=== PATIENT | male | born 1955 | race Caucasian/White ===

== ENCOUNTER 2020-04-02 11:34 | Observation (INO) ==
[2020-04-02] MEDS ORDERED: Naloxone 0.4 MG/ML INJ IVP PRN (16:00)
[2020-04-02] MEDS ORDERED: Pregabalin 50 MG CAPSULE PO SCH (16:30)
[2020-04-02 17:10] LABS: Estimated Average Glucose 111 mg/dl
[2020-04-02 17:42] LABS: Folate 20.5 ng/mL (3.0-16.0)
[2020-04-02 17:46] LABS: Potassium 3.4 mEq/L (3.5-5.1)
[2020-04-02 17:47] LABS: Vitamin B12 > 1500 pg/mL (250-1100)
[2020-04-02 17:48] LABS: Calcium 8.4 mg/dL (8.6-10.3); Magnesium 1.6 mg/dL (1.6-2.6); Thyroid Stimulating Hormone 1.018 mcIU/mL (0.340-5.600)
[2020-04-02] MEDS ORDERED: Acetaminophen 650 MG RECTAL SUPP RC PRN (18:11)
[2020-04-02] MEDS ORDERED: hydrALAZINE 25 MG TABLET PO SCH (21:00)
[2020-04-02] MEDS ORDERED: carvediloL 25 MG TABLET PO SCH (21:00)
[2020-04-02] MEDS ORDERED: D5% in Water 1,000 ML IVC PRN (21:53)
[2020-04-02] MEDS ORDERED: *HR* Dextrose 50 % in Water (Syg) 50 ML SYRINGE IVP PRN (21:53)
[2020-04-02] MEDS ORDERED: Dextrose Gel 15 GM/37.5 ML TUBE PO PRN ×2 (21:53)
[2020-04-02] MEDS ORDERED: Insulin LISPRO 300 UNITS/3 ML VIAL SQ SCH (22:00)
[2020-04-02] MEDS ORDERED: *HR* Heparin 5,000 UNIT/ML VIAL SQ SCH (22:00)
[2020-04-02] MEDS ORDERED: *HR* Heparin 5,000 UNIT/ML VIAL IVP PRN ×2 (22:31)
[2020-04-02] MEDS ORDERED: *HR* Heparin 5,000 UNIT/ML VIAL IVP ONE (22:31)
[2020-04-02] MEDS ORDERED: Heparin 25,000 UNIT/250 ML D5W 25,000 UNIT/250 ML IV.SOLN IVC SCH (22:45)
[2020-04-02 22:55] LABS: Mean Corpuscular Volume 96.1 fL (83.0-100.0)
[2020-04-02 22:57] LABS: Hematocrit 22.1 % (37.5-50.1); Hemoglobin 7.4 g/dL (12.9-16.9); Immature Platelets 2.5 % (1.1-6.1); Mean Corpuscular HGB Conc 33.5 g/dL (31.6-35.5); Mean Corpuscular Hemoglobin 32.2 pg (28.0-33.3); Mean Platelet Volume 9.5 fL (9.4-12.4); Red Blood Count 2.3 M/mcL (4.19-5.50); Red Cell Distribution Width 19.6 % (11.5-14.5)
[2020-04-02 23:02] LABS: INR 1.1; Prothrombin Time 12.8 Seconds (9.4-12.1)
[2020-04-02 23:05] LABS: Heparin anti-factor XA UFH < 0.04 IU/mL (0.30-0.70)
[2020-04-03 01:28] LABS: Hemoglobin 7.2 g/dL (12.9-16.9); Red Cell Distribution Width 19.6 % (11.5-14.5)
[2020-04-03 01:30] LABS: Hematocrit 21.1 % (37.5-50.1); Immature Granulocytes % 0.3 % (0-4); Immature Platelets 3.2 % (1.1-6.1); Lymphocytes # 0.3 K/mcL (0.6-4.6); Lymphocytes % 2.8 %; Mean Corpuscular HGB Conc 34.1 g/dL (31.6-35.5); Mean Corpuscular Hemoglobin 32.7 pg (28.0-33.3); Mean Corpuscular Volume 95.9 fL (83.0-100.0); Mean Platelet Volume 9.6 fL (9.4-12.4); Monocytes # 0.3 K/mcL (0.0-1.3); Neutrophils # 8.5 K/mcL (1.6-8.9); Platelet Count 44 K/mcL (140-400); Segmented Neutrophils % 93.9 %
[2020-04-03 01:45] LABS: Calcium 8.2 mg/dL (8.6-10.3); Magnesium 1.6 mg/dL (1.6-2.6); Potassium 3.6 mEq/L (3.5-5.1)
[2020-04-03 04:39] VITALS: BP 121/70
[2020-04-03] MEDS ORDERED: Insulin LISPRO 300 UNITS/3 ML VIAL SQ SCH (07:30)
[2020-04-03] MEDS ORDERED: predniSONE 5 MG TABLET PO SCH (09:00)
[2020-04-03] MEDS ORDERED: NIFEdipine XL (24 HR) 60 MG TAB.ER.24 PO SCH (09:00)
[2020-04-03] MEDS ORDERED: (Febuxostat [Uloric] 40 MG) PO SCH (09:00)
[2020-04-03] MEDS ORDERED: MAGNESIUM PO SCH (09:00)
[2020-04-03] MEDS ORDERED: Bumetanide 1 MG TABLET PO SCH (09:00)
[2020-04-03] MEDS ORDERED: [UNRECOGNIZED DRUG - OTHER] PO SCH (09:00)
[2020-04-03] MEDS ORDERED: Renal Vitamin 1 CAP CAPSULE PO SCH (09:00)
== END 2020-04-03 04:42 | disposition short-term general hospital (02) ==
LOC: 2ANU
PROVIDERS: ADMIT Internal Medicine; ATTEND Internal Medicine

== ENCOUNTER 2020-07-02 16:31 | Inpatient (IN) ==
[2020-07-02] MEDS ORDERED: Ondansetron 4 MG/2 ML VIAL IVP PRN (20:20)
[2020-07-02] MEDS ORDERED: Naloxone 0.4 MG/ML INJ IVP PRN (20:20)
[2020-07-02] MEDS ORDERED: *HR* LORazepam 2 MG/ML VIAL IVP PRN ×3 (21:33)
[2020-07-02] MEDS ORDERED: Benzonatate 100 MG CAPSULE PO PRN (21:34)
[2020-07-02] MEDS ORDERED: D5% in Water 1,000 ML IVC PRN (22:05)
[2020-07-02] MEDS ORDERED: Dextrose Gel 15 GM/37.5 ML TUBE PO PRN ×2 (22:05)
[2020-07-02] MEDS ORDERED: *HR* Dextrose 50 % in Water (Vial) 50 ML VIAL IVP PRN (22:05)
[2020-07-02] MEDS ORDERED: Perflutren Lipid Microsphere 1.3 ML in 0.9 % Sodium Chloride 8.7 ML IVP PRN (22:24)
[2020-07-02] MEDS: Thiamine (B-1) 100 MG, Folic Acid 1 MG, MVI, adult with vitamin K 10 ML in 0.9 % Sodi... IVPB SCH (22:46)
[2020-07-02] MEDS: 0.9 % Sodium Chloride 1,000 ML IVC SCH (22:47)
[2020-07-03] MEDS ORDERED: *HR* Heparin 5,000 UNIT/ML VIAL SQ SCH (06:00)
[2020-07-03] MEDS: 0.9 % Sodium Chloride 1,000 ML IVC SCH (09:07)
[2020-07-03] MEDS: Insulin LISPRO 300 UNITS/3 ML VIAL SQ SCH ×3 (09:07→17:30)
[2020-07-03] MEDS ORDERED: Colchicine 0.6 MG TABLET PO SCH (15:45)
[2020-07-03] MEDS ORDERED: NON-FORMULARY MEDICATION 1 EACH EACH PO SCH (17:15)
[2020-07-03] MEDS: carvediloL 25 MG TABLET PO SCH (17:29)
[2020-07-03] MEDS: [UNRECOGNIZED DRUG - OTHER] PO SCH (17:30)
[2020-07-03] MEDS: Thiamine (B-1) 100 MG, Folic Acid 1 MG, MVI, adult with vitamin K 10 ML in 0.9 % Sodi... IVPB SCH (17:33)
[2020-07-03] MEDS ORDERED: Insulin LISPRO 300 UNITS/3 ML VIAL SQ SCH (21:00)
[2020-07-03] MEDS: hydrALAZINE 25 MG TABLET PO SCH (21:00)
[2020-07-04] MEDS: *HR* OxyCODONE Immed Rel 5 MG TABLET PO PRN ×2 (01:54→09:36)
[2020-07-04 02:33] LABS: Mean Platelet Volume 9.4 fL (9.4-12.4); Red Cell Distribution Width 15.4 % (11.5-14.5)
[2020-07-04 02:35] LABS: Basophils % 0.2 %; Eosinophils # 0.1 K/mcL (0.0-0.6); Eosinophils % 1.1 %; Hemoglobin 7.2 g/dL (12.9-16.9); Immature Granulocytes % 0.7 % (0-4); Immature Platelets 2.3 % (1.1-6.1); Lymphocytes # 0.9 K/mcL (0.6-4.6); Lymphocytes % 20.4 %; Mean Corpuscular HGB Conc 32.7 g/dL (31.6-35.5); Mean Corpuscular Hemoglobin 32.4 pg (28.0-33.3); Mean Corpuscular Volume 99.1 fL (83.0-100.0); Monocytes # 0.5 K/mcL (0.0-1.3); Monocytes % 11.1 %; Neutrophils # 2.9 K/mcL (1.6-8.9); Platelet Count 66 K/mcL (140-400); Red Blood Count 2.22 M/mcL (4.19-5.50); Segmented Neutrophils % 66.5 %; White Blood Count 4.4 K/mcL (4.3-11.1)
[2020-07-04 02:51] LABS: Calcium 7.4 mg/dL (8.6-10.3); Potassium 3.5 mEq/L (3.5-5.1)
[2020-07-04] MEDS: Insulin LISPRO 300 UNITS/3 ML VIAL SQ SCH (08:55)
[2020-07-04] MEDS ORDERED: predniSONE 5 MG TABLET PO SCH (09:00)
[2020-07-04] MEDS ORDERED: Cyanocobalamin (B-12) 1,000 MCG TABLET PO SCH (09:00)
[2020-07-04] MEDS ORDERED: lisinopriL 20 MG TABLET PO SCH (09:00)
[2020-07-04] MEDS ORDERED: Febuxostat [Uloric] 40 MG PO SCH (09:00)
[2020-07-04] MEDS: carvediloL 25 MG TABLET PO SCH (09:35)
[2020-07-04] MEDS: hydrALAZINE 25 MG TABLET PO SCH (09:36)
[2020-07-04] MEDS: [UNRECOGNIZED DRUG - OTHER] PO SCH (09:37)
[2020-07-04 13:11] VITALS: BP 133/63
[2020-07-05] MEDS ORDERED: Multivit/Ca/Min/Fe/FA 1 TAB TABLET PO SCH (09:00)
== END 2020-07-04 13:20 | disposition home or self-care (01) | DRG 897 ==
LOC: 3ANU → SUATTDRO 18:53
PROVIDERS: ADMIT Internal Medicine; ATTEND Internal Medicine

== ENCOUNTER 2021-10-16 18:38 | Observation (INO) ==
[2021-10-16] MEDS ORDERED: Ondansetron ODT 4 MG TAB.RAPDIS SL PRN (22:43)
[2021-10-16] MEDS ORDERED: Naloxone 0.4 MG/ML INJ IVP PRN (22:46)
[2021-10-16] MEDS ORDERED: Melatonin 3 MG TABLET PO PRN (22:46)
[2021-10-16] MEDS ORDERED: Potassium Chloride Elixir 20 MEQ/15 ML UDC PO ONE (23:01)
[2021-10-16] MEDS ORDERED: Dextrose Gel 15 GM/37.5 ML TUBE PO PRN ×2 (23:02)
[2021-10-16] MEDS ORDERED: *HR* Dextrose 50 % in Water (Syg) 50 ML SYRINGE IVP PRN (23:02)
[2021-10-16] MEDS ORDERED: D5% in Water 1,000 ML IVC PRN (23:02)
[2021-10-17] MEDS ORDERED: 0.9 % Sodium Chloride 1,000 ML IVC SCH ×2 (00:15→08:00)
[2021-10-17 05:10] LABS: Hematocrit 29.6 % (37.5-50.1); Hemoglobin 9.6 g/dL (12.9-16.9); Mean Corpuscular HGB Conc 32.4 g/dL (31.6-35.5); Mean Corpuscular Volume 92.5 fL (83.0-100.0); Mean Platelet Volume 9.5 fL (9.4-12.4); Platelet Count 269 K/mcL (140-400); Red Cell Distribution Width 14.6 % (11.5-14.5); White Blood Count 7.9 K/mcL (4.3-11.1)
[2021-10-17 05:14] LABS: Albumin 3.2 g/dL (3.5-5.7); Albumin/Globulin Ratio 1.1 (1.1-2.2); Bilirubin,Total 0.8 mg/dL (0.3-1.0); Calcium 8.5 mg/dL (8.6-10.3); INR 1.1; Magnesium 2.2 mg/dL (1.6-2.6); Phosphorous 3.4 mg/dL (2.7-4.5); Potassium 3.8 mEq/L (3.5-5.1); Prothrombin Time 11.8 Seconds (9.4-12.1); Total Protein 6.2 g/dL (6.4-8.9)
[2021-10-17] MEDS: Sennosides/Docusate Sodium TABLET PO SCH ×2 (07:33→20:19)
[2021-10-17] MEDS: *HR* HYDROcodone/Acet 5/325 mg TABLET PO PRN ×2 (07:38→18:06)
[2021-10-17] MEDS: Insulin LISPRO 300 UNITS/3 ML VIAL SUBQ SCH ×3 (07:44→18:07)
[2021-10-17] MEDS: [UNRECOGNIZED DRUG - OTHER] PO SCH (14:16)
[2021-10-17] MEDS: *HR* OxyCODONE Immed Rel 5 MG TABLET PO SCH ×2 (14:19→20:19)
[2021-10-17] MEDS ORDERED: Gabapentin 300 MG CAPSULE PO SCH (18:00)
[2021-10-17] MEDS: carvediloL 25 MG TABLET PO SCH (20:19)
[2021-10-17] MEDS ORDERED: Insulin LISPRO 300 UNITS/3 ML VIAL SUBQ SCH (21:00)
[2021-10-17] MEDS ORDERED: traZODone 50 MG TABLET PO SCH (21:00)
[2021-10-18] MEDS: *HR* HYDROcodone/Acet 5/325 mg TABLET PO PRN (02:46)
[2021-10-18] MEDS: [UNRECOGNIZED DRUG - OTHER] PO SCH (08:38)
[2021-10-18] MEDS: carvediloL 25 MG TABLET PO SCH (08:42)
[2021-10-18] MEDS: Sennosides/Docusate Sodium TABLET PO SCH (08:42)
[2021-10-18] MEDS: *HR* OxyCODONE Immed Rel 5 MG TABLET PO SCH (08:42)
[2021-10-18] MEDS: Insulin LISPRO 300 UNITS/3 ML VIAL SUBQ SCH ×2 (08:47→12:07)
[2021-10-18] MEDS ORDERED: Cholecalciferol (D-3) 1,000 UNIT (25MCG) TABLET PO SCH (09:00)
[2021-10-18] MEDS ORDERED: Folic Acid 1 MG TABLET PO SCH (09:00)
[2021-10-18] MEDS ORDERED: tiZANidine 4 MG TABLET PO SCH (09:00)
[2021-10-18] MEDS ORDERED: Gabapentin 100 MG CAPSULE PO SCH (09:00)
[2021-10-18] MEDS ORDERED: Thiamine (B-1) 100 MG TABLET PO SCH (09:00)
[2021-10-18] MEDS ORDERED: Cyanocobalamin (B-12) 1,000 MCG TABLET PO SCH (09:00)
[2021-10-18 10:24] LABS: Basophils % 0.4 %; Eosinophils # 0.1 K/mcL (0.0-0.6); Eosinophils % 1.7 %; Hematocrit 28.4 % (37.5-50.1); Immature Granulocytes % 0.8 % (0-4); Lymphocytes # 1.3 K/mcL (0.6-4.6); Lymphocytes % 17.5 %; Mean Corpuscular HGB Conc 31.7 g/dL (31.6-35.5); Mean Corpuscular Hemoglobin 29.9 pg (28.0-33.3); Mean Corpuscular Volume 94.4 fL (83.0-100.0); Mean Platelet Volume 9.5 fL (9.4-12.4); Monocytes # 0.7 K/mcL (0.0-1.3); Monocytes % 9.8 %; Platelet Count 242 K/mcL (140-400); Red Blood Count 3.01 M/mcL (4.19-5.50); Red Cell Distribution Width 14.6 % (11.5-14.5); Segmented Neutrophils % 69.8 %; White Blood Count 7.2 K/mcL (4.3-11.1)
[2021-10-18 10:46] LABS: Calcium 8.4 mg/dL (8.6-10.3); Potassium 3.4 mEq/L (3.5-5.1)
[2021-10-18 11:11] VITALS: BP 147/83; PULSE 72; TEMP 98.5; O2SAT 95
== END 2021-10-18 13:30 | disposition home health service (06) ==
LOC: 3ANU → SUATTDRO 22:00
PROVIDERS: ADMIT Pharmacist; ATTEND Internal Medicine

== ENCOUNTER 2022-05-11 19:16 | Inpatient (IN) ==
[2022-05-12 00:04] LABS: Mean Corpuscular Hemoglobin 32.3 pg (28.0-33.3); Monocytes % 1.2 %
[2022-05-12 00:06] LABS: Eosinophils % 1.2 %; Hemoglobin 7.3 g/dL (12.9-16.9); Immature Platelets 3.5 % (1.1-6.1); Lymphocytes # 0.8 K/mcL (0.6-4.6); Lymphocytes % 95.2 %; Mean Corpuscular HGB Conc 34.8 g/dL (31.6-35.5); Mean Corpuscular Volume 92.9 fL (83.0-100.0); Mean Platelet Volume 12.7 fL (9.4-12.4); Red Blood Count 2.26 M/mcL (4.19-5.50); Red Cell Distribution Width 18.3 % (11.5-14.5); Segmented Neutrophils % 2.4 %
[2022-05-12 00:11] LABS: Platelet Count 64 K/mcL (140-400); White Blood Count 0.8 K/mcL (4.3-11.1)
[2022-05-12 00:12] LABS: Albumin 3.7 g/dL (3.5-5.7); Albumin/Globulin Ratio 1.2 (1.1-2.2); Bilirubin,Total 0.6 mg/dL (0.3-1.0); Calcium 9.5 mg/dL (8.6-10.3); Globulin 3.1 g/dL (2.4-3.5); Potassium 3.7 mEq/L (3.5-5.1); Total Protein 6.8 g/dL (6.4-8.9)
[2022-05-12 00:52] LABS: Anisocytosis 1+ (Not Present); Hypochromasia Present (Not Present); Platelet Estimate Decreased (Normal)
[2022-05-12 00:59] LABS: Influenza A PCR Negative (Negative); Influenza B PCR Negative (Negative); Resp. Syncytial Virus PCR Negative (Negative)
[2022-05-12] MEDS ORDERED: Cefepime HCl 2,000 MG in 0.9 % Sodium Chloride 10 ML IVP ONE (01:13)
[2022-05-12 01:29] LABS: SARS-CoV-2 by PCR (In House) Negative (Negative)
[2022-05-12 03:01] LABS: Bilirubin,Urine Negative (Negative); Blood,Urine Negative (Negative); Clarity,Urine Clear (Clear); Color,Urine Light-Yellow (Yellow); Glucose,Urine (UA) Normal (Normal); Hyaline Casts,Urine Few per lpf (None Seen); Ketones,Urine Trace mg/dL (Negative); Leukocyte Esterase,Urine Negative (Negative); Mucus,Urine Few per lpf (None-Few); Nitrite,Urine Negative (Negative); PH,Urine 5.5 pH Units (5.0-8.0); Protein,Urine 30 mg/dL (Neg-Trace); RBC,Urine 0-3 per hpf (0-3); Squamous Epithelial Cell,Urine Few per hpf (None-Few); Urobilinogen,Urine Normal (Normal); WBC,Urine 0-3 per hpf (0-3)
[2022-05-12 03:21] LABS: Adenovirus Not Detected (Not Detect); Bordetella Pertussis Not Detected (Not Detect); Chlamydophila pneumoniae Not Detected (Not Detect); Coronavirus 229E Not Detected (Not Detect); Coronavirus HKU1 Not Detected (Not Detect); Coronavirus NL63 Not Detected (Not Detect); Coronavirus OC43 Not Detected (Not Detect); Human Metapneumovirus Not Detected (Not Detect); Human Rhinovirus/Enterovirus Not Detected (Not Detect); Influenza A Subtype 2009 H1 Not Detected (Not Detect); Influenza B Not Detected (Not Detect); Mycoplasma pneumoniae Not Detected (Not Detect); Parainfluenza Virus 1 Not Detected (Not Detect); Parainfluenza Virus 2 Not Detected (Not Detect); Parainfluenza Virus 3 Not Detected (Not Detect); Parainfluenza Virus 4 Not Detected (Not Detect); Respiratory Syncytial Virus Not Detected (Not Detect); SARS-CoV-2 Not Detected (Not Detect)
[2022-05-12] MEDS ORDERED: Naloxone 0.4 MG/ML INJ IVP PRN (04:10)
[2022-05-12] MEDS ORDERED: 0.9 % Sodium Chloride 1,000 ML IVC SCH (04:15)
[2022-05-12] MEDS ORDERED: D5% in Water 1,000 ML IVC PRN (04:29)
[2022-05-12] MEDS ORDERED: *HR* Dextrose 50 % in Water (Syg) 50 ML SYRINGE IVP PRN (04:29)
[2022-05-12] MEDS ORDERED: Dextrose Gel 15 GM/37.5 ML TUBE PO PRN ×2 (04:29)
[2022-05-12] MEDS: Fluconazole 400 MG/200 ML 400 MG/200 ML BAG IVPB SCH ×2 (07:38→09:58)
[2022-05-12] MEDS: Insulin LISPRO 300 UNITS/3 ML VIAL SUBQ SCH ×3 (07:50→17:54)
[2022-05-12] MEDS ORDERED: Cefepime HCl 2,000 MG in 0.9 % Sodium Chloride 20 ML IVPB SCH (10:00)
[2022-05-12] MEDS: Ondansetron 4 MG/2 ML VIAL IVP PRN ×2 (12:06→18:04)
[2022-05-12] MEDS: allopurinoL 300 MG TABLET PO SCH (21:22)
[2022-05-12] MEDS: Acyclovir 200 MG CAPSULE PO SCH (21:22)
[2022-05-12] MEDS: Cefepime HCl 2,000 MG in 0.9 % Sodium Chloride 20 ML IVPB SCH (22:51)
[2022-05-13] MEDS: Ondansetron 4 MG/2 ML VIAL IVP PRN ×2 (00:18→20:52)
[2022-05-13] MEDS ORDERED: *HR* Metoprolol 5 MG/5 ML VIAL IVP ONE (03:48)
[2022-05-13 05:40] LABS: Mean Corpuscular Hemoglobin 32.5 pg (28.0-33.3); Red Cell Distribution Width 18.5 % (11.5-14.5)
[2022-05-13 05:42] LABS: Hemoglobin 6.2 g/dL (12.9-16.9); Immature Platelets 2.6 % (1.1-6.1); Lymphocytes # 0.2 K/mcL (0.6-4.6); Lymphocytes % 94.4 %; Mean Corpuscular HGB Conc 34.4 g/dL (31.6-35.5); Mean Corpuscular Volume 94.2 fL (83.0-100.0); Mean Platelet Volume 12.3 fL (9.4-12.4); Red Blood Count 1.91 M/mcL (4.19-5.50); Segmented Neutrophils % 5.6 %
[2022-05-13 05:55] LABS: Calcium 8.6 mg/dL (8.6-10.3); Potassium 3.8 mEq/L (3.5-5.1)
[2022-05-13 06:09] LABS: Platelet Count 75 K/mcL (140-400); White Blood Count 0.2 K/mcL (4.3-11.1)
[2022-05-13 06:26] LABS: Anisocytosis 2+ (Not Present); Hypochromasia Present (Not Present); Platelet Estimate Decreased (Normal)
[2022-05-13] MEDS: Insulin LISPRO 300 UNITS/3 ML VIAL SUBQ SCH ×3 (08:00→16:38)
[2022-05-13] MEDS: allopurinoL 300 MG TABLET PO SCH (08:00)
[2022-05-13] MEDS: Fluconazole 100 MG TABLET PO SCH (08:00)
[2022-05-13] MEDS: Acyclovir 200 MG CAPSULE PO SCH ×2 (08:00→20:52)
[2022-05-13] MEDS ORDERED: POSACONAZOLE 100 MG PO SCH (09:00)
[2022-05-13] MEDS ORDERED: allopurinoL 300 MG TABLET PO SCH (09:00)
[2022-05-13] MEDS ORDERED: ACYCLOVIR 400 MG PO SCH (09:00)
[2022-05-13] MEDS ORDERED: 0.9 % Sodium Chloride 250 ML ONE (09:57)
[2022-05-13] MEDS: TIZANIDINE HCL 2 MG PO SCH (10:23)
[2022-05-13] MEDS: *HR* LORazepam 1 MG TABLET PO SCH (10:24)
[2022-05-13] MEDS: Cefepime HCl 2,000 MG in 0.9 % Sodium Chloride 20 ML IVPB SCH ×2 (10:27→23:36)
[2022-05-13] MEDS: *HR* Heparin 5,000 UNIT/ML VIAL SQ SCH (16:38)
[2022-05-14 02:17] LABS: Adenovirus F 40/41 PCR Not detected (Not detect); Astrovirus PCR Not detected (Not detect); C.difficile Toxin A/B Gene PCR Not detected (Not detect); Campylobacter by PCR Not detected (Not detect); Cryptosporidium by PCR Not detected (Not detect); Cyclospora cayetanensis PCR Not detected (Not detect); E. coli O157 by PCR Not detected (Not detect); Entamoeba histolytica PCR Not detected (Not detect); Enteroaggregative E.coli(EAEC) Not detected (Not detect); Enteropathogenic E.coli(EPEC) Not detected (Not detect); Enterotoxigenic E.coli (ETEC) Not detected (Not detect); Giardia lamblia PCR Not detected (Not detect); Norovirus GI/GII PCR DETECTED (Not detect); Plesiomonas shigelloides PCR Not detected (Not detect); Rotavirus A PCR Not detected (Not detect); Salmonella PCR Not detected (Not detect); Sapovirus PCR Not detected (Not detect); Shig/EnteroinvasiveE coli EIEC Not detected (Not detect); Shigalike tox-prod E coli STEC Not detected (Not detect); Vibrio PCR Not detected (Not detect); Vibrio cholerae PCR Not detected (Not detect); Yersinia enterocolitica PCR Not detected (Not detect)
[2022-05-14 04:14] LABS: Hematocrit 22.1 % (37.5-50.1)
[2022-05-14 04:16] LABS: Hemoglobin 7.5 g/dL (12.9-16.9); Immature Platelets 2.7 % (1.1-6.1); Lymphocytes # 0.2 K/mcL (0.6-4.6); Mean Corpuscular HGB Conc 33.9 g/dL (31.6-35.5); Mean Corpuscular Hemoglobin 31.4 pg (28.0-33.3); Mean Corpuscular Volume 92.5 fL (83.0-100.0); Mean Platelet Volume 10.4 fL (9.4-12.4); Red Blood Count 2.39 M/mcL (4.19-5.50); Red Cell Distribution Width 18.5 % (11.5-14.5)
[2022-05-14 04:34] LABS: Calcium 8.6 mg/dL (8.6-10.3); Potassium 3.6 mEq/L (3.5-5.1)
[2022-05-14 04:35] LABS: Platelet Count 82 K/mcL (140-400)
[2022-05-14 04:39] LABS: White Blood Count 0.2 K/mcL (4.3-11.1)
[2022-05-14] MEDS: *HR* Heparin 5,000 UNIT/ML VIAL SQ SCH ×2 (05:09→17:15)
[2022-05-14 05:10] LABS: Anisocytosis 1+ (Not Present); Hypochromasia Present (Not Present); Platelet Estimate Decreased (Normal)
[2022-05-14] MEDS: *HR* LORazepam 1 MG TABLET PO SCH (09:25)
[2022-05-14] MEDS: Fluconazole 100 MG TABLET PO SCH (09:25)
[2022-05-14] MEDS: TIZANIDINE HCL 2 MG PO SCH ×2 (09:26→23:10)
[2022-05-14] MEDS: Acyclovir 200 MG CAPSULE PO SCH ×2 (09:26→20:08)
[2022-05-14] MEDS: Insulin LISPRO 300 UNITS/3 ML VIAL SUBQ SCH ×3 (09:26→17:20)
[2022-05-14] MEDS: allopurinoL 300 MG TABLET PO SCH (09:26)
[2022-05-14] MEDS: Cefepime HCl 2,000 MG in 0.9 % Sodium Chloride 20 ML IVPB SCH (11:38)
[2022-05-14 12:57] LABS: A.calcoaceticus-baumannii cplx Not Detected (Not Detect); Bacteroides fragilis by PCR Not Detected (Not Detect); Candida albicans by PCR Not Detected (Not Detect); Candida auris by PCR Not Detected (Not Detect); Candida glabrata by PCR Not Detected (Not Detect); Candida krusei by PCR Not Detected (Not Detect); Candida parapsilosis by PCR Not Detected (Not Detect); Candida tropicalis by PCR Not Detected (Not Detect); Crypto. neoformans/gattii PCR Not Detected (Not Detect); Enterobacter cloacae Cmplx PCR Not Detected (Not Detect); Enterobacterales by PCR Not Detected (Not Detect); Enterococcus faecalis by PCR Not Detected (Not Detect); Enterococcus faecium by PCR Not Detected (Not Detect); Escherichia coli by PCR Not Detected (Not Detect); Klebs. pneumoniae group by PCR Not Detected (Not Detect); Klebsiella aerogenes by PCR Not Detected (Not Detect); Klebsiella oxytoca by PCR Not Detected (Not Detect); Proteus by PCR Not Detected (Not Detect); Pseudomonas aeruginosa by PCR Not Detected (Not Detect); Salmonella species by PCR Not Detected (Not Detect); Serratia marcescens by PCR Not Detected (Not Detect); Staph epidermidis by PCR Not Detected (Not Detect); Staph lugdunensis by PCR Not Detected (Not Detect); Staphylococcus aureus by PCR Not Detected (Not Detect); Staphylococcus by PCR DETECTED (Not Detect); Stenotrophomonas maltophilia Not Detected (Not Detect); Streptococcus agalactiae(B)PCR Not Detected (Not Detect); Streptococcus by PCR Not Detected (Not Detect); Streptococcus pneumoniae PCR Not Detected (Not Detect); Streptococcus pyogenes (A) PCR Not Detected (Not Detect)
[2022-05-14] MEDS ORDERED: Iopamidol - 370 500 ML MLS IVP ONE (15:29)
[2022-05-14] MEDS: Acetaminophen 325 MG TABLET PO PRN (20:10)
[2022-05-15] MEDS: Cefepime HCl 2,000 MG in 0.9 % Sodium Chloride 20 ML IVPB SCH ×2 (00:35→12:13)
[2022-05-15 02:28] LABS: Hematocrit 21.4 % (37.5-50.1); Hemoglobin 7.2 g/dL (12.9-16.9); Mean Corpuscular HGB Conc 33.6 g/dL (31.6-35.5); Mean Corpuscular Hemoglobin 31.2 pg (28.0-33.3); Mean Corpuscular Volume 92.6 fL (83.0-100.0); Mean Platelet Volume 10.5 fL (9.4-12.4); Red Blood Count 2.31 M/mcL (4.19-5.50); Red Cell Distribution Width 18.1 % (11.5-14.5)
[2022-05-15 02:31] LABS: Platelet Count 96 K/mcL (140-400); White Blood Count 0.3 K/mcL (4.3-11.1)
[2022-05-15 02:56] LABS: Albumin 3.1 g/dL (3.5-5.7); Bilirubin,Direct 0.1 mg/dL (0.0-0.2); Bilirubin,Indirect 0.2 mg/dL (0.0-1.0); Bilirubin,Total 0.3 mg/dL (0.3-1.0); Calcium 8.5 mg/dL (8.6-10.3); Globulin 3.1 g/dL (2.4-3.5); Magnesium 1.8 mg/dL (1.6-2.6); Phosphorous 3.7 mg/dL (2.7-4.5); Potassium 3.6 mEq/L (3.5-5.1); Total Protein 6.2 g/dL (6.4-8.9)
[2022-05-15] MEDS: *HR* Heparin 5,000 UNIT/ML VIAL SQ SCH ×2 (05:31→17:31)
[2022-05-15] MEDS: *HR* LORazepam 1 MG TABLET PO SCH (08:18)
[2022-05-15] MEDS: allopurinoL 300 MG TABLET PO SCH (08:18)
[2022-05-15] MEDS: Acyclovir 200 MG CAPSULE PO SCH ×2 (08:18→21:01)
[2022-05-15] MEDS: Fluconazole 100 MG TABLET PO SCH (08:18)
[2022-05-15] MEDS: Insulin LISPRO 300 UNITS/3 ML VIAL SUBQ SCH ×3 (08:19→17:31)
[2022-05-15] MEDS: Cyanocobalamin (B-12) 1,000 MCG TABLET PO SCH (21:01)
[2022-05-15] MEDS: Cholecalciferol (D-3) 1,000 UNIT (25MCG) TABLET PO SCH (21:01)
[2022-05-15] MEDS: lisinopriL 20 MG TABLET PO SCH (21:01)
[2022-05-15] MEDS: Folic Acid 1 MG TABLET PO SCH (21:01)
[2022-05-15] MEDS: TIZANIDINE HCL 2 MG PO SCH (21:02)
[2022-05-15] MEDS ORDERED: Benzocaine 20% 12 APPL GEL..GRAM. TP PRN (21:19)
[2022-05-16] MEDS: Cefepime HCl 2,000 MG in 0.9 % Sodium Chloride 20 ML IVPB SCH ×3 (00:01→22:59)
[2022-05-16] MEDS: *HR* Heparin 5,000 UNIT/ML VIAL SQ SCH ×2 (05:30→17:12)
[2022-05-16] MEDS: Cholecalciferol (D-3) 1,000 UNIT (25MCG) TABLET PO SCH (08:30)
[2022-05-16] MEDS: Folic Acid 1 MG TABLET PO SCH (08:30)
[2022-05-16] MEDS: Multivit/Ca/Min/Fe/FA 1 TAB TABLET PO SCH (08:30)
[2022-05-16] MEDS: *HR* LORazepam 1 MG TABLET PO SCH (08:30)
[2022-05-16] MEDS: Acyclovir 200 MG CAPSULE PO SCH ×2 (08:30→20:53)
[2022-05-16] MEDS: allopurinoL 300 MG TABLET PO SCH (08:30)
[2022-05-16] MEDS: lisinopriL 20 MG TABLET PO SCH (08:30)
[2022-05-16] MEDS: Cyanocobalamin (B-12) 1,000 MCG TABLET PO SCH (08:30)
[2022-05-16] MEDS: Fluconazole 100 MG TABLET PO SCH (08:31)
[2022-05-16] MEDS: Insulin LISPRO 300 UNITS/3 ML VIAL SUBQ SCH ×3 (08:31→17:13)
[2022-05-16 12:02] LABS: Hematocrit 24.4 % (37.5-50.1); Hemoglobin 8.3 g/dL (12.9-16.9); Lymphocytes # 0.4 K/mcL (0.6-4.6); Lymphocytes % 88.4 %; Mean Corpuscular Hemoglobin 31.6 pg (28.0-33.3); Mean Corpuscular Volume 92.8 fL (83.0-100.0); Mean Platelet Volume 10.3 fL (9.4-12.4); Monocytes % 4.7 %; Red Blood Count 2.63 M/mcL (4.19-5.50); Red Cell Distribution Width 17.7 % (11.5-14.5); Segmented Neutrophils % 6.9 %
[2022-05-16 12:05] LABS: Platelet Count 97 K/mcL (140-400)
[2022-05-16 12:10] LABS: White Blood Count 0.4 K/mcL (4.3-11.1)
[2022-05-16 12:21] LABS: Platelet Estimate Decreased (Normal)
[2022-05-16 12:22] LABS: Anisocytosis 1+ (Not Present); Hypochromasia Present (Not Present); Poikilocytosis 1+ (Not Present)
[2022-05-16] MEDS ORDERED: Chloraseptic Spray 177 ML BOTTLE MM PRN (14:22)
[2022-05-16] MEDS: Vancomycin 1,500 MG/265 ML IV.SOLN IVPB SCH (18:08)
[2022-05-16] MEDS: TIZANIDINE HCL 2 MG PO SCH (20:53)
[2022-05-17] MEDS: *HR* Heparin 5,000 UNIT/ML VIAL SQ SCH ×2 (05:06→17:30)
[2022-05-17 06:00] LABS: Hemoglobin 7.3 g/dL (12.9-16.9); Lymphocytes # 0.6 K/mcL (0.6-4.6); Lymphocytes % 83.3 %; Mean Corpuscular HGB Conc 33.2 g/dL (31.6-35.5); Mean Corpuscular Hemoglobin 31.2 pg (28.0-33.3); Mean Platelet Volume 10.5 fL (9.4-12.4); Monocytes % 6.1 %; Neutrophils # 0.1 K/mcL (1.6-8.9); Platelet Count 112 K/mcL (140-400); Red Blood Count 2.34 M/mcL (4.19-5.50); Red Cell Distribution Width 17.3 % (11.5-14.5); Segmented Neutrophils % 10.6 %
[2022-05-17 06:12] LABS: White Blood Count 0.7 K/mcL (4.3-11.1)
[2022-05-17 06:20] LABS: Calcium 8.9 mg/dL (8.6-10.3); Potassium 3.8 mEq/L (3.5-5.1)
[2022-05-17 06:47] LABS: Platelet Estimate Slight Decrease (Normal)
[2022-05-17 06:48] LABS: Hypochromasia Present (Not Present)
[2022-05-17] MEDS: lisinopriL 20 MG TABLET PO SCH (07:47)
[2022-05-17] MEDS: Multivit/Ca/Min/Fe/FA 1 TAB TABLET PO SCH (07:47)
[2022-05-17] MEDS: Folic Acid 1 MG TABLET PO SCH (07:47)
[2022-05-17] MEDS: Cholecalciferol (D-3) 1,000 UNIT (25MCG) TABLET PO SCH (07:47)
[2022-05-17] MEDS: allopurinoL 300 MG TABLET PO SCH (07:47)
[2022-05-17] MEDS: Acyclovir 200 MG CAPSULE PO SCH ×2 (07:47→19:44)
[2022-05-17] MEDS: Insulin LISPRO 300 UNITS/3 ML VIAL SUBQ SCH ×3 (07:48→17:52)
[2022-05-17] MEDS: Cyanocobalamin (B-12) 1,000 MCG TABLET PO SCH (07:48)
[2022-05-17] MEDS: *HR* LORazepam 1 MG TABLET PO SCH (07:48)
[2022-05-17] MEDS: Fluconazole 100 MG TABLET PO SCH (07:50)
[2022-05-17] MEDS: Cefepime HCl 2,000 MG in 0.9 % Sodium Chloride 20 ML IVPB SCH ×2 (12:59→23:08)
[2022-05-17] MEDS: Vancomycin 1,500 MG/265 ML IV.SOLN IVPB SCH (18:48)
[2022-05-17] MEDS: TIZANIDINE HCL 2 MG PO SCH (19:44)
[2022-05-18] MEDS: *HR* Heparin 5,000 UNIT/ML VIAL SQ SCH ×2 (05:26→17:10)
[2022-05-18 05:34] LABS: Red Cell Distribution Width 17.2 % (11.5-14.5)
[2022-05-18 05:36] LABS: Hematocrit 24.3 % (37.5-50.1); Hemoglobin 7.9 g/dL (12.9-16.9); Lymphocytes # 0.9 K/mcL (0.6-4.6); Lymphocytes % 86.1 %; Mean Corpuscular HGB Conc 32.5 g/dL (31.6-35.5); Mean Corpuscular Hemoglobin 30.7 pg (28.0-33.3); Mean Corpuscular Volume 94.6 fL (83.0-100.0); Mean Platelet Volume 10.4 fL (9.4-12.4); Neutrophils # 0.1 K/mcL (1.6-8.9); Platelet Count 109 K/mcL (140-400); Red Blood Count 2.57 M/mcL (4.19-5.50); Segmented Neutrophils % 6.9 %
[2022-05-18 05:54] LABS: Calcium 8.9 mg/dL (8.6-10.3); Potassium 3.9 mEq/L (3.5-5.1)
[2022-05-18 06:24] LABS: Anisocytosis 1+ (Not Present); Hypochromasia Present (Not Present); Platelet Estimate Slight Decrease (Normal)
[2022-05-18 06:25] LABS: Reactive Lymphocytes Present (Not Present)
[2022-05-18] MEDS: *HR* LORazepam 1 MG TABLET PO SCH (08:30)
[2022-05-18] MEDS: allopurinoL 300 MG TABLET PO SCH (08:30)
[2022-05-18] MEDS: Cholecalciferol (D-3) 1,000 UNIT (25MCG) TABLET PO SCH (08:30)
[2022-05-18] MEDS: Cyanocobalamin (B-12) 1,000 MCG TABLET PO SCH (08:30)
[2022-05-18] MEDS: lisinopriL 20 MG TABLET PO SCH (08:31)
[2022-05-18] MEDS: Folic Acid 1 MG TABLET PO SCH (08:31)
[2022-05-18] MEDS: Acyclovir 200 MG CAPSULE PO SCH ×2 (08:31→20:11)
[2022-05-18] MEDS: Fluconazole 100 MG TABLET PO SCH (08:31)
[2022-05-18] MEDS: Multivit/Ca/Min/Fe/FA 1 TAB TABLET PO SCH (08:31)
[2022-05-18] MEDS: Insulin LISPRO 300 UNITS/3 ML VIAL SUBQ SCH ×3 (08:34→17:11)
[2022-05-18] MEDS: Cefepime HCl 2,000 MG in 0.9 % Sodium Chloride 20 ML IVPB SCH ×2 (12:12→22:12)
[2022-05-18] MEDS: Acetaminophen 325 MG TABLET PO PRN (14:54)
[2022-05-18] MEDS ORDERED: Ondansetron 4 MG/2 ML VIAL IVP PRN (14:57)
[2022-05-18] MEDS: Ondansetron 4 MG/2 ML VIAL IVP PRN (15:03)
[2022-05-18] MEDS ORDERED: Acetaminophen IV 500 MG/50 ML BAG IVPB ONE (15:30)
[2022-05-18 15:36] LABS: Mean Corpuscular HGB Conc 32.2 g/dL (31.6-35.5)
[2022-05-18 15:38] LABS: Hematocrit 26.1 % (37.5-50.1); Hemoglobin 8.4 g/dL (12.9-16.9); Lymphocytes # 0.6 K/mcL (0.6-4.6); Mean Corpuscular Volume 96.3 fL (83.0-100.0); Mean Platelet Volume 11.1 fL (9.4-12.4); Nucleated Red Blood Cells 5.4 /100 WBC (0); Platelet Count 140 K/mcL (140-400); Red Blood Count 2.71 M/mcL (4.19-5.50); Red Cell Distribution Width 17.4 % (11.5-14.5)
[2022-05-18 15:42] LABS: White Blood Count 0.7 K/mcL (4.3-11.1)
[2022-05-18 15:54] LABS: Albumin 3.6 g/dL (3.5-5.7); Albumin/Globulin Ratio 0.9 (1.1-2.2); Bilirubin,Direct 0.1 mg/dL (0.0-0.2); Bilirubin,Indirect 0.6 mg/dL (0.0-1.0); Bilirubin,Total 0.7 mg/dL (0.3-1.0); Globulin 3.9 g/dL (2.4-3.5); Total Protein 7.5 g/dL (6.4-8.9)
[2022-05-18 16:06] LABS: Anisocytosis 1+ (Not Present)
[2022-05-18 16:13] LABS: Platelet Estimate Decreased (Normal)
[2022-05-18] MEDS ORDERED: Iopamidol - 370 500 ML MLS PO ONE (17:03)
[2022-05-18] MEDS: Vancomycin 1,500 MG/265 ML IV.SOLN IVPB SCH (18:50)
[2022-05-18] MEDS: Ringers Solution, Lactated 1,000 ML IVC SCH (19:03)
[2022-05-18] MEDS: TIZANIDINE HCL 2 MG PO SCH (20:12)
[2022-05-18 22:05] LABS: Bacteria,Urine Few per hpf (None-Few); Bilirubin,Urine Negative (Negative); Blood,Urine Trace (Negative); Clarity,Urine Clear (Clear); Color,Urine Colorless (Yellow); Glucose,Urine (UA) Normal (Normal); Ketones,Urine Negative (Negative); Leukocyte Esterase,Urine Negative (Negative); Mucus,Urine Few per lpf (None-Few); Nitrite,Urine Negative (Negative); Protein,Urine Trace mg/dL (Neg-Trace); RBC,Urine 0-3 per hpf (0-3); Specific Gravity,Urine 1.007 (1.010-1.025); Urobilinogen,Urine Normal (Normal); WBC,Urine 0-3 per hpf (0-3)
[2022-05-19] MEDS: Acetaminophen 325 MG TABLET PO PRN (00:53)
[2022-05-19] MEDS: Ringers Solution, Lactated 1,000 ML IVC SCH ×4 (02:02→21:08)
[2022-05-19 05:24] LABS: Mean Corpuscular Hemoglobin 31.4 pg (28.0-33.3); Mean Corpuscular Volume 95.2 fL (83.0-100.0)
[2022-05-19 05:27] LABS: Hemoglobin 6.6 g/dL (12.9-16.9); Immature Platelets 3.8 % (1.1-6.1); Lymphocytes # 0.5 K/mcL (0.6-4.6); Lymphocytes % 83.6 %; Monocytes # 0.1 K/mcL (0.0-1.3); Monocytes % 13.1 %; Red Cell Distribution Width 17.1 % (11.5-14.5); Segmented Neutrophils % 3.3 %
[2022-05-19 05:46] LABS: Calcium 8.5 mg/dL (8.6-10.3); Potassium 4.4 mEq/L (3.5-5.1)
[2022-05-19 05:51] LABS: Platelet Count 97 K/mcL (140-400)
[2022-05-19 05:55] LABS: Anisocytosis 1+ (Not Present); Platelet Estimate Decreased (Normal); White Blood Count 0.6 K/mcL (4.3-11.1)
[2022-05-19] MEDS: *HR* Heparin 5,000 UNIT/ML VIAL SQ SCH ×2 (06:05→17:16)
[2022-05-19] MEDS ORDERED: Acetaminophen 325 MG TABLET PO ONE (07:25)
[2022-05-19] MEDS ORDERED: 0.9 % Sodium Chloride 250 ML IVC SCH (07:30)
[2022-05-19] MEDS: Insulin LISPRO 300 UNITS/3 ML VIAL SUBQ SCH ×3 (07:51→17:16)
[2022-05-19] MEDS: Acyclovir 200 MG CAPSULE PO SCH ×2 (08:01→21:09)
[2022-05-19] MEDS: Cholecalciferol (D-3) 1,000 UNIT (25MCG) TABLET PO SCH (08:01)
[2022-05-19] MEDS: *HR* LORazepam 1 MG TABLET PO SCH (08:02)
[2022-05-19] MEDS: Folic Acid 1 MG TABLET PO SCH (08:02)
[2022-05-19] MEDS: lisinopriL 20 MG TABLET PO SCH (08:02)
[2022-05-19] MEDS: Cyanocobalamin (B-12) 1,000 MCG TABLET PO SCH (08:02)
[2022-05-19] MEDS: allopurinoL 300 MG TABLET PO SCH (08:02)
[2022-05-19] MEDS: Multivit/Ca/Min/Fe/FA 1 TAB TABLET PO SCH (08:02)
[2022-05-19] MEDS: Fluconazole 100 MG TABLET PO SCH (08:25)
[2022-05-19] MEDS: Cefepime HCl 2,000 MG in 0.9 % Sodium Chloride 20 ML IVPB SCH ×2 (11:10→23:28)
[2022-05-19 12:41] LABS: Influenza A PCR Negative (Negative); Influenza B PCR Negative (Negative); Resp. Syncytial Virus PCR Negative (Negative)
[2022-05-19 12:45] LABS: SARS-CoV-2 by PCR (In House) Negative (Negative)
[2022-05-19] MEDS: *HR* LORazepam 0.5 MG TABLET PO PRN (21:09)
[2022-05-19] MEDS: TIZANIDINE HCL 2 MG PO SCH (21:10)
[2022-05-20] MEDS: Ringers Solution, Lactated 1,000 ML IVC SCH ×3 (05:08→23:16)
[2022-05-20 05:10] LABS: Red Cell Distribution Width 18.8 % (11.5-14.5)
[2022-05-20 05:12] LABS: Hematocrit 21.4 % (37.5-50.1); Hemoglobin 7.1 g/dL (12.9-16.9); Immature Platelets 3.6 % (1.1-6.1); Lymphocytes # 0.3 K/mcL (0.6-4.6); Lymphocytes % 86.1 %; Mean Corpuscular HGB Conc 33.2 g/dL (31.6-35.5); Mean Corpuscular Hemoglobin 29.7 pg (28.0-33.3); Mean Corpuscular Volume 89.5 fL (83.0-100.0); Mean Platelet Volume 11.9 fL (9.4-12.4); Monocytes % 8.3 %; Nucleated Red Blood Cells 8.3 /100 WBC (0); Red Blood Count 2.39 M/mcL (4.19-5.50); Segmented Neutrophils % 5.6 %
[2022-05-20 05:17] LABS: Platelet Count 88 K/mcL (140-400); White Blood Count 0.4 K/mcL (4.3-11.1)
[2022-05-20 05:29] LABS: Albumin/Globulin Ratio 1.1 (1.1-2.2); Bilirubin,Total 0.3 mg/dL (0.3-1.0); Calcium 8.1 mg/dL (8.6-10.3); Globulin 2.7 g/dL (2.4-3.5); Potassium 3.9 mEq/L (3.5-5.1); Total Protein 5.7 g/dL (6.4-8.9)
[2022-05-20 06:09] LABS: Platelet Estimate Decreased (Normal); Reactive Lymphocytes Present (Not Present)
[2022-05-20] MEDS: lisinopriL 20 MG TABLET PO SCH (08:20)
[2022-05-20] MEDS: Acyclovir 200 MG CAPSULE PO SCH ×2 (08:20→21:10)
[2022-05-20] MEDS: Multivit/Ca/Min/Fe/FA 1 TAB TABLET PO SCH (08:20)
[2022-05-20] MEDS: Fluconazole 100 MG TABLET PO SCH (08:20)
[2022-05-20] MEDS: Cholecalciferol (D-3) 1,000 UNIT (25MCG) TABLET PO SCH (08:20)
[2022-05-20] MEDS: Cyanocobalamin (B-12) 1,000 MCG TABLET PO SCH (08:21)
[2022-05-20] MEDS: Folic Acid 1 MG TABLET PO SCH (08:21)
[2022-05-20] MEDS: allopurinoL 300 MG TABLET PO SCH (08:21)
[2022-05-20] MEDS: Insulin LISPRO 300 UNITS/3 ML VIAL SUBQ SCH ×3 (08:23→17:40)
[2022-05-20] MEDS: Cefepime HCl 2,000 MG in 0.9 % Sodium Chloride 20 ML IVPB SCH ×2 (12:38→23:17)
[2022-05-20] MEDS: TIZANIDINE HCL 2 MG PO SCH (21:10)
[2022-05-20] MEDS: *HR* LORazepam 0.5 MG TABLET PO PRN (23:16)
[2022-05-21] MEDS: Acetaminophen 325 MG TABLET PO PRN (01:21)
[2022-05-21 04:56] LABS: Hemoglobin 7.1 g/dL (12.9-16.9)
[2022-05-21 04:58] LABS: Hematocrit 20.9 % (37.5-50.1); Immature Platelets 2.9 % (1.1-6.1); Mean Corpuscular Hemoglobin 30.5 pg (28.0-33.3); Mean Corpuscular Volume 89.7 fL (83.0-100.0); Mean Platelet Volume 11.7 fL (9.4-12.4); Red Blood Count 2.33 M/mcL (4.19-5.50); Red Cell Distribution Width 18.3 % (11.5-14.5)
[2022-05-21 05:00] LABS: White Blood Count 0.4 K/mcL (4.3-11.1)
[2022-05-21 05:16] LABS: Albumin/Globulin Ratio 1.1 (1.1-2.2); Bilirubin,Total 0.4 mg/dL (0.3-1.0); Calcium 8.2 mg/dL (8.6-10.3); Globulin 2.7 g/dL (2.4-3.5); Potassium 3.9 mEq/L (3.5-5.1); Total Protein 5.7 g/dL (6.4-8.9)
[2022-05-21] MEDS: Multivit/Ca/Min/Fe/FA 1 TAB TABLET PO SCH (09:59)
[2022-05-21] MEDS: Cholecalciferol (D-3) 1,000 UNIT (25MCG) TABLET PO SCH (09:59)
[2022-05-21] MEDS: Acyclovir 200 MG CAPSULE PO SCH (09:59)
[2022-05-21] MEDS: lisinopriL 20 MG TABLET PO SCH (10:00)
[2022-05-21] MEDS: Cyanocobalamin (B-12) 1,000 MCG TABLET PO SCH (10:00)
[2022-05-21] MEDS: allopurinoL 300 MG TABLET PO SCH (10:00)
[2022-05-21] MEDS: Folic Acid 1 MG TABLET PO SCH (10:00)
[2022-05-21] MEDS: Fluconazole 100 MG TABLET PO SCH (10:02)
[2022-05-21] MEDS: Insulin LISPRO 300 UNITS/3 ML VIAL SUBQ SCH ×2 (10:03→12:28)
[2022-05-21 11:06] VITALS: BP 138/74; PULSE 97; TEMP 97.7; O2SAT 98
[2022-05-21] MEDS: Cefepime HCl 2,000 MG in 0.9 % Sodium Chloride 20 ML IVPB SCH (12:28)
== END 2022-05-21 16:45 | disposition home or self-care (01) | DRG 834 ==
LOC: EMEROOARM 19:16 → 3NENU 19:16 → SUATTDRO 05-13 08:45
PROVIDERS: ADMIT General Practice; ATTEND Hospitalist